=== PATIENT | female | born 1990 | race Hispanic/Latino ===

== ENCOUNTER 2021-06-02 17:38 | Emergency (ER) | payer OTHER ==
[~2021-06-02] VITALS: Ht 162.6 cm; Wt 72.6 kg
[2021-06-02 17:43] VITALS: BP 137/99
[2021-06-02] MEDS ORDERED: FAMOTIDINE 20MG TAB ONE (17:59)
[2021-06-02] MEDS ORDERED: MAG/ALUM/SIMETH 30 ML UDCUP ONE (17:59)
[2021-06-02] MEDS ORDERED: ONDANSETRON ODT 4MG TAB ONE (17:59)
[2021-06-02] MEDS ORDERED: LIDOCAINE HCL 2% VISCOUS 15 ML UDCUP ONE (17:59)
[2021-06-02] MEDS ORDERED: FAMOTIDINE 20MG TAB PO ONE (18:00)
[2021-06-02] MEDS ORDERED: ONDANSETRON 4MG TABLET PO ONE (18:00)
[2021-06-02] MEDS ORDERED: LIDOCAINE HCL 2% VISCOUS 15 ML UDCUP PO ONE (18:00)
[2021-06-02] MEDS ORDERED: DICYCLOMINE HCL 10 MG/5 ML ML PO ONE (18:00)
[2021-06-02] MEDS ORDERED: MAG/ALUM/SIMETH 30 ML UDCUP PO ONE (18:00)
[2021-06-02 18:07] LABS: APPEARANCE,URINE Clear (CLEAR); BILIRUBIN,URINE Negative (NEGATIVE); COLOR,URINE Yellow (YELLOW); GLUCOSE, URINE (UA) Negative (NEGATIVE); KETONES,URINE Trace mg/dL (NEGATIVE); LEUKOCYTE ESTERASE ,URINE Negative (NEGATIVE); NITRATE,URINE Negative (NEGATIVE); OCCULT BLOOD,URINE Trace (NEGATIVE); PH,URINE 7.5 (5.0-8.0); PROTEIN,URINE Negative (NEGATIVE)
[2021-06-02] MEDS: DICYCLOMINE HCL 10 MG/5 ML ML PO ONE ×2 (18:09→18:11)
[2021-06-02 18:17] LABS: BASOPHILS % (AUTO) 0.3 % (0.0-5.0); EOSINOPHILS % (AUTO) 0.2 % (0.0-8.0); HEMATOCRIT 36.4 % (36-48); LYMPHOCYTES % (AUTO) 18.9 % (21.0-51.0); MEAN CORPUSCULAR HGB CONC 34.9 g/dL (32.0-36.0); MEAN CORPUSCULAR VOLUME 88.8 fL (79-99); MONOCYTES % (AUTO) 12.5 % (3.0-13.0); NEUTROPHILS % (AUTO) 67.8 % (40.0-77.0); PLATELET COUNT (AUTO) 314 K/uL (130-400); RED CELL DISTRIBUTION WIDTH 13.1 % (11.0-15.5); WHITE BLOOD COUNT (AUTO) 5.8 K/uL (4.8-10.8)
[2021-06-02 18:22] LABS: HCG,QUAL RESULT NEGATIVE (NEGATIVE)
[2021-06-02 18:28] LABS: CREATININE 0.7 mg/dL (0.5-1.5); POTASSIUM 3.3 mmol/L (3.5-5.1)
[2021-06-02 18:33] LABS: ALBUMIN 3.9 g/dL (3.5-5.0); BILIRUBIN,TOTAL 0.3 mg/dL (0.2-1.0)
[2021-06-02 18:38] LABS: BACTERIA,URINE Few /HPF (None Seen); RBC,URINE 0-1 /HPF (0-1); SQUAMOUS EPITHELIAL CELL,UR Few /HPF (0-2); WBC,URINE 0-1 /HPF (0-1)
[2021-06-02] MEDS ORDERED: DICY20TA2 PO (18:54)
[2021-06-02] MEDS ORDERED: FAMO-136 PO (18:54)
[2021-06-02] MEDS ORDERED: POTASSIUM BICARB/CIT AC 25 MEQ TABLET.EFF PO ONE (19:00)
== END 2021-06-02 19:04 | disposition home or self-care (01) ==
LOC: EDH 17:38
DX: K29.70 Gastritis, unspecified, without bleeding (principal); K21.9 Gastro-esophageal reflux disease without esophagitis; Z90.49 Acquired absence of other specified parts of digestive tract
CPT/HCPCS: 36415; 71045; 80053; 81001; 81025; 83690; 84484; 85025

== ENCOUNTER 2021-06-17 02:30 | Emergency (ER) | payer OTHER ==
[~2021-06-17 02:30] MED LIST: DICY20TA2 PO; FAMO-136 PO
[2021-06-17] MEDS ORDERED: ONDANSETRON 4MG INJ IVP ONE (03:00)
[2021-06-17] MEDS ORDERED: PANTOPRAZOLE 40 MG/VIAL IVP ONE (03:00)
[2021-06-17 03:13] LABS: BASOPHILS % (AUTO) 0.2 % (0.0-5.0); EOSINOPHILS % (AUTO) 0.1 % (0.0-8.0); HEMATOCRIT 38.2 % (36-48); LYMPHOCYTES % (AUTO) 7.4 % (21.0-51.0); MEAN CORPUSCULAR HEMOGLOBIN 29.7 pg (27.0-33.0); MEAN CORPUSCULAR VOLUME 87.2 fL (79-99); MONOCYTES % (AUTO) 6.5 % (3.0-13.0); NEUTROPHILS % (AUTO) 85.5 % (40.0-77.0); PLATELET COUNT (AUTO) 355 K/uL (130-400); RED BLOOD CELL COUNT(AUTO) 4.38 MIL/uL (4.00-5.50); RED CELL DISTRIBUTION WIDTH 12.9 % (11.0-15.5); WHITE BLOOD COUNT (AUTO) 18.8 K/uL (4.8-10.8)
[2021-06-17 03:24] LABS: CREATININE 0.8 mg/dL (0.5-1.5); POTASSIUM 3.1 mmol/L (3.5-5.1)
[2021-06-17 03:28] LABS: BILIRUBIN,TOTAL 0.3 mg/dL (0.2-1.0); TOTAL PROTEIN, SERUM 7.9 g/dL (6.0-8.3)
[2021-06-17] MEDS ORDERED: LACTATED RINGERS 1000ML IV ONE (03:30)
[2021-06-17] MEDS ORDERED: ZOSYN 3.375GM +NS 50ML IV SCH (04:00)
[2021-06-17] MEDS ORDERED: POTASSIUM BICARB/CIT AC 25 MEQ TABLET.EFF PO ONE (04:00)
[2021-06-17] MEDS ORDERED: IOHEXOL 350 MG/ML 100ML INFUS..BTL IV ONE (04:15)
[2021-06-17] MEDS ORDERED: KETOROLAC 30MG VIAL (30MG/ML) IVP ONE (04:30)
[2021-06-17 05:01] LABS: APPEARANCE,URINE Clear (CLEAR); BILIRUBIN,URINE Negative (NEGATIVE); GLUCOSE, URINE (UA) Negative (NEGATIVE); KETONES,URINE 15 mg/dL (NEGATIVE); LEUKOCYTE ESTERASE ,URINE Small (NEGATIVE); NITRATE,URINE Negative (NEGATIVE); OCCULT BLOOD,URINE Large (NEGATIVE); PROTEIN,URINE Trace mg/dL (NEGATIVE); UROBILINOGEN,URINE 0.2 mg/dL (0.2-1.0)
[2021-06-17 05:07] LABS: AMPHET/METH SCREEN,URINE NEGATIVE (NEGATIVE); BARBITURATE SCREEN, URINE NEGATIVE (NEGATIVE); BENZODIAZEPINES SCREEN,URINE NEGATIVE (NEGATIVE); CANNABINOID SCREEN,URINE POSITIVE (NEGATIVE); COCAINE SCREEN,URINE NEGATIVE (NEGATIVE); OPIATE SCREEN,URINE NEGATIVE (NEGATIVE); PHENCYCLIDINE SCREEN,URINE NEGATIVE (NEGATIVE)
[2021-06-17 05:13] LABS: COLOR,URINE PINK (YELLOW)
[2021-06-17 05:24] LABS: RBC,URINE 26-50 /HPF (0-1)
[2021-06-17 05:25] LABS: BACTERIA,URINE Few /HPF (None Seen); SQUAMOUS EPITHELIAL CELL,UR 0-2 /HPF (0-2)
[2021-06-17 07:08] VITALS: BP 120/81
[2021-06-17] MEDS ORDERED: FAMO20TA8 PO (07:10)
== END 2021-06-17 07:31 | disposition home or self-care (01) ==
LOC: EDH 02:30
DX: K29.70 Gastritis, unspecified, without bleeding (principal); K52.9 Noninfective gastroenteritis and colitis, unspecified; F12.10 Cannabis abuse, uncomplicated; K21.9 Gastro-esophageal reflux disease without esophagitis; Z90.49 Acquired absence of other specified parts of digestive tract; Z79.899 Other long term (current) drug therapy
CPT/HCPCS: 36415; 74177; 80053; 80305; 81001; 83605; 83690; 84484; 84703; 85025; 96365; 96366; 96375; 99285; C9113; J1885; J2405; J2543; J7120; Q9967